=== PATIENT | female | born 1975 | race Two or more races ===

== ENCOUNTER → 2024-10-31 | Day surgery (SDC) | payer OTHER | END | disposition home or self-care (01) | LOC: FMAMMOTONE 13:47 | PROVIDERS: ATTEND Surgery | PROC: 0HBT3ZX Excision of Right Breast, Percutaneous Approach, Diagnostic (ICD-10-PCS; principal; 2024-10-31) | DX: D05.11 Intraductal carcinoma in situ of right breast (principal); N60.11 Diffuse cystic mastopathy of right breast; N64.89 Other specified disorders of breast; R92.8 Other abnormal and inconclusive findings on diagnostic imaging of breast | CPT/HCPCS: 19081; 19082; 76098-TC-FY; 87899; 88305-TC; 88342-TC; A4648 ==